=== PATIENT | female | born 1955 | race Caucasian/White ===

== ENCOUNTER 2016-08-30 11:09 | Observation (INO) | payer OTHER ==
[~2016-08-30] VITALS: Ht 149.9 cm; Wt 65.8 kg
[~2016-08-30 11:09] MED LIST: NEURONTIN 300300 MG PO
[2016-08-30 11:44] LABS: HEMOGLOBIN 13.7 gm/dl (12.3-15.3); RED BLOOD COUNT 4.47 M/UL (4.00-5.10); WHITE BLOOD COUNT 6.6 K/UL (4.5-11.0)
[2016-08-30 12:16] LABS: BUN/CREATININE RATIO 23 (0-10)
[2016-08-30] MEDS ORDERED: TOPROL XL100 MG PO (18:16)
[2016-08-30] MEDS ORDERED: PLAVIX75 MG PO (18:17)
[2016-08-30] MEDS ORDERED: REQUIP4 MG PO (18:18)
[2016-08-30] MEDS ORDERED: SEROQUEL300 MG PO (18:18)
[2016-08-30] MEDS ORDERED: LORCET HD 10-31 EACH PO (18:18)
[2016-08-30] MEDS ORDERED: ASPIR 8181 MG PO (18:19)
[2016-08-31 06:12] LABS: HEMOGLOBIN 11.9 gm/dl (12.3-15.3)
[2016-08-31 06:18] LABS: RED BLOOD COUNT 3.94 M/UL (4.00-5.10)
[2016-08-31 06:24] LABS: BUN/CREATININE RATIO 40 (0-10)
[2016-08-31] MEDS ORDERED: LIPITOR TAB 2020 MG PO (18:26)
== END 2016-08-31 18:30 | disposition home or self-care (01) ==
LOC: ER1 11:09 → ZEROF 15:11 → M/S 15:11
PROVIDERS: Emergency Medicine; ADMIT Internal Medicine
DX: R07.9 Chest pain, unspecified (principal); I45.10 Unspecified right bundle-branch block; I25.10 Atherosclerotic heart disease of native coronary artery without angina pectoris; I10 Essential (primary) hypertension; E78.5 Hyperlipidemia, unspecified; J44.9 Chronic obstructive pulmonary disease, unspecified; G89.29 Other chronic pain; M54.9 Dorsalgia, unspecified; H54.42 Blindness, left eye, normal vision right eye; G25.81 Restless legs syndrome; Z95.1 Presence of aortocoronary bypass graft; Z79.82 Long term (current) use of aspirin; Z79.02 Long term (current) use of antithrombotics/antiplatelets; Z79.899 Other long term (current) drug therapy; Z98.51 Tubal ligation status; Z88.0 Allergy status to penicillin; Z88.5 Allergy status to narcotic agent; Z88.1 Allergy status to other antibiotic agents; Z87.891 Personal history of nicotine dependence
CPT/HCPCS: ECHO; 36415; 71020; 78452; 80048; 80053; 80061; 82550; 82553; 83735; 83874; 84484; 85025; 85027; 93005; 93017; 93306; 94664; 99285; A9502; G0378; J2785

== ENCOUNTER → 2020-08-19 | Outpatient (CLI) | payer MEDICARE ==
[~2020-08-19] MED LIST changes: +ASPIR 8181 MG PO; +LIPITOR TAB 2020 MG PO; +LORCET HD 10-31 EACH PO; +PLAVIX75 MG PO; +REQUIP4 MG PO; +SEROQUEL300 MG PO; +TOPROL XL100 MG PO
== END ==
LOC: HEART 5 08:09
DX: J44.9 Chronic obstructive pulmonary disease, unspecified (principal); R00.2 Palpitations; R06.02 Shortness of breath; I08.3 Combined rheumatic disorders of mitral, aortic and tricuspid valves
CPT/HCPCS: 78452; 93306; A9502; J2785